=== PATIENT | female | born 1945 | race Caucasian/White ===

== ENCOUNTER 2024-12-02 07:27 | Emergency (ER) | payer OTHER ==
[~2024-12-02] VITALS: Ht 153 cm; Wt 45.5 kg
[2024-12-02] MEDS ORDERED: MECL-302 PO (07:49)
[2024-12-02] MEDS ORDERED: LOSA-381 PO (07:49)
[2024-12-02 07:53] VITALS: TEMP 98.6
[2024-12-02 08:22] LABS: PLATELET COUNT (AUTO) 182 K/uL (150-450); RED BLOOD CELL COUNT(AUTO) 4.28 MIL/uL (4.00-5.20); RED CELL DISTRIBUTION WIDTH 14.8 % (11.5-14.5); WHITE BLOOD COUNT (AUTO) 6.0 K/uL (4.5-11.0)
[2024-12-02 08:29] LABS: CALCIUM, TOTAL 8.6 mg/dL (8.8-10.5); CREATININE 0.92 mg/dL (0.60-1.30); GLOMERULAR FILTR. RATE CALC 59 mL/min (>60); GLUCOSE,RANDOM 91 mg/dL (70-110); SODIUM SERUM 141 mmol/L (136-145); UREA NITROGEN, BLOOD 12 mg/dL (7-18)
[2024-12-02 08:39] LABS: TROPONIN I-HIGH SENSITIVITY 6 ng/L (<51)
[2024-12-02] MEDS: NITROGLYCERIN 0.4 MG SUBLINGUAL TABLET #25 SL ONE (10:05)
[2024-12-02] MEDS: NITROGLYCERIN 2% (1 GM=INCH) OINTMENT PACKET TP ONE (10:05)
[2024-12-02] MEDS: MORPHINE SULFATE 2 MG/ML SYRINGE IVP ONE (10:05)
[2024-12-02] MEDS: ASPIRIN 325 MG TABLET PO ONE (10:05)
[2024-12-02 10:10] LABS: APPEARANCE,URINE CLEAR (CLEAR); GLUCOSE, URINE (UA) NEGATIVE (NEGATIVE); LEUKOCYTE ESTERASE ,URINE NEGATIVE (NEGATIVE); NITRATE,URINE POSITIVE (NEGATIVE); OCCULT BLOOD,URINE SMALL (NEGATIVE); SPECIFIC GRAVITIY, URINE 1.008 (1.003-1.030)
[2024-12-02 10:15] VITALS: BP 141/74; PULSE 89; RESP 18; O2SAT 96
[2024-12-02 10:16] LABS: SQUAMOUS EPITHELIAL CELL,UR Rare /LPF (None Seen)
== END 2024-12-02 10:51 | disposition short-term general hospital (02) ==
LOC: EMS 07:27
DX: R07.9 Chest pain, unspecified (principal); R06.02 Shortness of breath; R11.0 Nausea; I10 Essential (primary) hypertension; Z79.899 Other long term (current) drug therapy
CPT/HCPCS: 99285; 96374; 71045; 80048; 81001; 83690; 84484; 85025; 87077; 87086; 36415; 93005; J2270; 87186